=== PATIENT | male | born 1950 | race Hispanic/Latino ===

== ENCOUNTER 2019-08-09 10:44 | Emergency (ER) | payer SELFPAY ==
--- NOTE | 2019-08-09 11:20 | Emergency Department Report ---
Blank Doc - Documentation Documentation: 69-year-old male that presents with chest pain and SOB. This initial assessment/diagnostic orders/clinical plan/treatment(s) is/are subject to change based on patient's health status, clinical progression and re- assessment by fellow clinical providers in the ED. Further treatment and workup at subsequent clinical providers discretion. Patient/guardians urged not to elope from the ED as their condition may be serious if not clinically assessed and managed. Initial orders include: 1- Patient sent to MAIN for further evaluation and treatment 2- EKG 3- labs 4- CXR 5- O2 oxygen
--- NOTE | 2019-08-09 11:30 | XRay Report ---
CHEST 2 VIEWS INDICATION: SOB. COMPARISON: None available. FINDINGS: Support devices: None. Median sternotomy wires and mediastinal surgical clips. Heart: Within normal limits. Pulmonary vasculature: Mild central vascular prominence. Lungs/pleura: Mild patchy and streaky right lower lobe opacities with blunting of the right costophre yamil angle. Similar blunting of the left costophrenic angle and blunting of both posterior costophreni c angles. No pneumothorax. Additional findings: None. IMPRESSION: 1. Small pleural effusions versus scarring. 2. Possible early right lower lobe pneumonia. 3. No CHF. Signer Name: Skip Lau MD Signed: 08/09/2019 11:25 AM Workstation Name: [id number]
[2019-08-09 11:58] LABS: Basophils % (Auto) 0.7 % (0.0-1.8); Eosinophils # (Auto) 0.3 K/mm3 (0.0-0.4); Eosinophils % (Auto) 4.1 % (0.0-4.3); Hematocrit 36.2 % (35.5-45.6); Hemoglobin 11.9 gm/dl (11.8-15.2); Lymphocytes # (Auto) 2.6 K/mm3 (1.2-5.4); Lymphocytes % (Auto) 36.5 % (13.4-35.0); Mean Corpuscular HGB Conc 33 % (32-34); Mean Corpuscular Volume 93 fl (84-94); Monocytes # (Auto) 0.6 K/mm3 (0.0-0.8); Monocytes % (Auto) 7.9 % (0.0-7.3); Platelet Count 203 K/mm3 (140-440); Red Blood Count 3.87 M/mm3 (3.65-5.03); Red Cell Distribution Width 15.8 % (13.2-15.2)
[2019-08-09 12:09] LABS: INR 0.99 (0.87-1.13)
[2019-08-09 12:11] LABS: Partial Thromboplastin Time 34.9 Sec. (24.2-36.6)
[2019-08-09 12:25] LABS: Albumin 2.9 g/dL (3.9-5); Calcium 8.5 mg/dL (8.4-10.2)
[2019-08-09] MEDS ORDERED: IPRATROPIUM/ALBUTEROL SULFATE 3 ML AMPUL.NEB IH ONE ×2 (13:06)
--- NOTE | 2019-08-09 13:35 | Emergency Department Report ---
HPI - HPI HPI: Room 25 The patient is a 69-year-old male presenting with chief complaint of shortness of breath. States she's felt short of breath for several weeks shortness of breath increased this morning. Patient missed chest congestion. Patient is to rhinorrhea for 2 weeks. Patient states she's had a cough has been productive of green sputum. Area began this morning. Patient denies recent antibiotics. Patient denies history of fever Location: [See above] Duration: [See above] Quality: [See above] Severity: [See above] Timing: [See above] Context: [See above] Modifying factors: [See above] Associated signs and symptoms: [see above] <CARMINE GARCIA - Last Filed: 08/09/19 13:29> <JOSE G HATCH - Last Filed: 08/09/19 22:36> - General Chief Complaint: Dyspnea/Respdistress Time Seen by Provider: 08/09/19 11:19 ED Past Medical Hx - Past Medical History Previous Medical History?: Yes Hx Hypertension: Yes Hx Congestive Heart Failure: Yes Hx Diabetes: Yes - Surgical History Past Surgical History?: Yes Hx Open Heart Surgery: Yes - Family History Family history: no significant - Social History Smoking Status: Current Every Day Smoker (1/2 pack per day) Substance Use Type: None (denies illicit drug use), Alcohol (occasional) <CARMINE GARCIA - Last Filed: 08/09/19 13:29> <JOSE G HATCH - Last Filed: 08/09/19 22:36> - Medications Home Medications: Home Medications Medication Instructions Recorded Confirmed Last Taken Type Albuterol INH(or & Nicu Only) 2 puff IH QID PRN #8.5 gram 08/09/19 Unknown Rx [ProAir HFA Inhaler] Benzonatate [Tessalon Perles] 100 mg PO Q8HR #30 capsule 08/09/19 Unknown Rx Diphenoxylate/Atropine [Lomotil] 1 - 2 tab PO QID PRN #20 tablet 08/09/19 Unknown Rx levoFLOXacin [Levaquin TAB] 500 mg PO QDAY #10 tablet 08/09/19 Unknown Rx ED Review of Systems ROS: Stated complaint: SOB Other details as noted in HPI Constitutional: denies: fever Eyes: denies: eye pain ENT: congestion Respiratory: cough, shortness of breath Cardiovascular: denies: chest pain Endocrine: no symptoms reported Gastrointestinal: denies: abdominal pain Genitourinary: denies: dysuria Musculoskeletal: denies: back pain Neurological: denies: headache <PALizabethCARMINE Kj - Last Filed: 08/09/19 13:29> ROS: Stated complaint: SOB Other details as noted in HPI <JOSE G HATCH - Last Filed: 08/09/19 22:36> Physical Exam - Physical Exam Vital Signs: Vital Signs 08/09/19 08/09/19 08/09/19 10:58 13:12 13:15 Temperature 97.8 F Pulse Rate 53 L Pulse Rate [ 86 Anterior Bilateral Throughout] Respiratory 16 Rate Respiratory 18 Rate [Anterior Bilateral Throughout] Blood Pressure 100/58 O2 Sat by Pulse 91 97 Oximetry Physical Exam: GENERAL: The patient is well-developed well-nourished male sitting on stretcher not appearing to be in acute distress. [] HEENT: Normocephalic. Atraumatic. Extraocular motions are intact. Patient has moist mucous membranes. NECK: Supple. Trachea midline CHEST/LUNGS: Clear to auscultation. There is no respiratory distress noted. HEART/CARDIOVASCULAR: Regular. There is no tachycardia. There is no gallop rub or murmur. ABDOMEN: Abdomen is soft, nontender. Patient has normal bowel sounds. There is no abdominal distention. SKIN: There is no rash. There is no edema. There is no diaphoresis. NEURO: The patient is awake, alert, and oriented. The patient is cooperative. The patient has normal speech MUSCULOSKELETAL:There is no evidence of acute injury. <CARMINE GARCIA Kj - Last Filed: 08/09/19 13:29> - Physical Exam Vital Signs: Vital Signs 08/09/19 08/09/19 08/09/19 10:58 13:12 13:15 Temperature 97.8 F Pulse Rate 53 L Pulse Rate [ 86 Anterior Bilateral Throughout] Respiratory 16 Rate Respiratory 18 Rate [Anterior Bilateral Throughout] Blood Pressure 100/58 Blood Pressure [Left] O2 Sat by Pulse 91 97 Oximetry 08/09/19 17:21 Temperature 98.2 F Pulse Rate 70 Pulse Rate [ Anterior Bilateral Throughout] Respiratory 19 Rate Respiratory Rate [Anterior Bilateral Throughout] Blood Pressure Blood Pressure 135/88 [Left] O2 Sat by Pulse 97 Oximetry <JOSE G HATCH - Last Filed: 08/09/19 22:36> ED Course Vital Signs 08/09/19 08/09/19 08/09/19 10:58 13:12 13:15 Temperature 97.8 F Pulse Rate 53 L Pulse Rate [ 86 Anterior Bilateral Throughout] Respiratory 16 Rate Respiratory 18 Rate [Anterior Bilateral Throughout] Blood Pressure 100/58 O2 Sat by Pulse 91 97 Oximetry <PALizabethCARMINE K - Last Filed: 08/09/19 13:29> Vital Signs 08/09/19 08/09/19 08/09/19 10:58 13:12 13:15 Temperature 97.8 F Pulse Rate 53 L Pulse Rate [ 86 Anterior Bilateral Throughout] Respiratory 16 Rate Respiratory 18 Rate [Anterior Bilateral Throughout] Blood Pressure 100/58 Blood Pressure [Left] O2 Sat by Pulse 91 97 Oximetry 08/09/19 17:21 Temperature 98.2 F Pulse Rate 70 Pulse Rate [ Anterior Bilateral Throughout] Respiratory 19 Rate Respiratory Rate [Anterior Bilateral Throughout] Blood Pressure Blood Pressure 135/88 [Left] O2 Sat by Pulse 97 Oximetry <JOSE G HATCH - Last Filed: 08/09/19 22:36> ED Medical Decision Making - Lab Data Result diagrams: 08/09/19 11:44 08/09/19 11:44 - EKG Data -: EKG Interpreted by Me EKG shows normal: sinus rhythm Rate: normal - EKG Data When compared to previous EKG there are: previous EKG unavailable Interpretation: nonspecific ST-T wave michelet (T-wave inversion in leads 1, aVL, V6) - Radiology Data Radiology results: report reviewed (chest x-ray), image reviewed (chest x-ray) interpreted by me: Chest x-ray-no focal infiltrates, no pneumothorax [facility] [address] [place] [address] XRay Report Signed Patient: JESSICA GARCÍA MR#: [id number] : 1950 Acct:[id number] Age/Sex: 69 / M ADM Date: 08/09/19 Loc: ED Attending Dr: Ordering Physician: ED MD RENA Date of Service: 08/09/19 Procedure(s): XR chest routine 2V Accession Number(s): [id number] cc: ED MD RENA Fluoro Time In Minutes: CHEST 2 VIEWS INDICATION: SOB. COMPARISON: None available. FINDINGS: Support devices: None. Median sternotomy wires and mediastinal surgical clips. Heart: Within normal limits. Pulmonary vasculature: Mild central vascular prominence. Lungs/pleura: Mild patchy and streaky right lower lobe opacities with blunting of the right costophrenic angle. Similar blunting of the left costophrenic angle and blunting of both posterior costophrenic angles. No pneumothorax. Additional findings: None. IMPRESSION: 1. Small pleural effusions versus scarring. 2. Possible early right lower lobe pneumonia. 3. No CHF. Signer Name: Sly Hunt MD Signed: 08/09/2019 11:25 AM Workstation Name: [id number] Transcribed By: REF Dictated By: SLY HUNT MD Electronically Authenticated By: SLY HUNT MD Signed Date/Time: 08/09/191124 DD/ 1122 TD/TT: - Differential Diagnosis pneumonia, bronchitis, new onset COPD <CARMINE GARCIA - Last Filed: 08/09/19 13:29> - Lab Data Result diagrams: 08/09/19 11:44 08/09/19 11:44 Laboratory Results - last 24 hr 08/09/19 08/09/19 08/09/19 11:44 11:44 11:44 WBC 7.2 RBC 3.87 Hgb 11.9 Hct 36.2 MCV 93 MCH 31 MCHC 33 RDW 15.8 H Plt Count 203 Lymph % (Auto) 36.5 H Hays % (Auto) 7.9 H Eos % (Auto) 4.1 Baso % (Auto) 0.7 Lymph # 2.6 Hays # 0.6 Eos # 0.3 Baso # 0.0 Seg Neutrophils % 50.8 Seg Neutrophils # 3.6 PT 13.2 INR 0.99 APTT 34.9 Sodium 140 Potassium 5.0 Chloride 107.6 H Carbon Dioxide 19 L Anion Gap 18 BUN 26 H Creatinine 3.3 H Estimated GFR 19 BUN/Creatinine Ratio 8 Glucose 119 H Calcium 8.5 Total Bilirubin 0.30 AST 32 ALT 17 Alkaline Phosphatase 78 Troponin T 0.034 H Total Protein 6.7 Albumin 2.9 L Albumin/Globulin Ratio 0.8 Triglycerides 150 H Cholesterol 146 LDL Cholesterol Direct 94 HDL Cholesterol 34 L Cholesterol/HDL Ratio 4.29 01/15/20 14:56 WBC RBC Hgb Hct MCV MCH MCHC RDW Plt Count Lymph % (Auto) Hays % (Auto) Eos % (Auto) Baso % (Auto) Lymph # Hays # Eos # Baso # Seg Neutrophils % Seg Neutrophils # PT INR APTT Sodium Potassium Chloride Carbon Dioxide Anion Gap BUN Creatinine Estimated GFR BUN/Creatinine Ratio Glucose Calcium Total Bilirubin AST ALT Alkaline Phosphatase Troponin T 0.023 Total Protein Albumin Albumin/Globulin Ratio Triglycerides Cholesterol LDL Cholesterol Direct HDL Cholesterol Cholesterol/HDL Ratio <JOSE G HATCH - Last Filed: 08/09/19 22:36> Critical care attestation.: If time is entered above; I have spent that time in minutes in the direct care of this critically ill patient, excluding procedure time. <CARMINE GARCIA - Last Filed: 08/09/19 13:29> Critical care attestation.: If time is entered above; I have spent that time in minutes in the direct care of this critically ill patient, excluding procedure time. <JOSE G HATCH - Last Filed: 08/09/19 22:36> ED Disposition Does the pt Need Aspirin: No <CARMINE GARCIA - Last Filed: 08/09/19 13:29> Is pt being admited?: No Does the pt Need Aspirin: No <JOSE G HATCH - Last Filed: 08/09/19 22:36> Clinical Impression: Pneumonia, Shortness of breath Disposition: - TO HOME OR SELFCARE Condition: Stable Instructions: Bacterial Pneumonia (ED) Additional Instructions: Return to the emergency department should you develop worsening symptoms, inability to tolerate food or liquids, high fever or any other concerns Prescriptions: levoFLOXacin [Levaquin TAB] 500 mg PO QDAY #10 tablet Diphenoxylate/Atropine [Lomotil] 1 - 2 tab PO QID PRN #20 tablet PRN Reason: Diarrhea Albuterol INH(or & Nicu Only) [ProAir HFA Inhaler] 2 puff IH QID PRN #8.5 gram PRN Reason: Shortness Of Breath Benzonatate [Tessalon Perles] 100 mg PO Q8HR #30 capsule Referrals: MANISHA SIMPSON MD [Primary Care Provider] - 3-5 Days UMESH BOO MD [Staff Physician] - 3-5 Days
[2019-08-09 15:49] LABS: Chol/HDL Ratio 4.29 %
[2019-08-09 17:22] VITALS: BP 135/88
== END 2019-08-09 17:50 | disposition home or self-care (01) ==
LOC: ED 10:44
DX: J18.9 Pneumonia, unspecified organism (principal); I11.0 Hypertensive heart disease with heart failure; I50.9 Heart failure, unspecified; E11.9 Type 2 diabetes mellitus without complications
CPT/HCPCS: 36415; 71046; 80053; 80061; 84484; 85025; 85610; 85730; 93005; 93010; 94640; 94644; 99284

== ENCOUNTER 2019-11-12 07:25 | Emergency (ER) | payer SELFPAY ==
[2019-11-12 07:50] VITALS: BP 168/91
--- NOTE | 2019-11-12 11:01 | Emergency Department Report ---
ED General Adult HPI - General Chief complaint: Pain General Stated complaint: FOOT PAIN Time Seen by Provider: 11/12/19 10:08 Source: patient Mode of arrival: Wheelchair Limitations: No Limitations - History of Present Illness Initial comments: This is a 69-year-old male who presents to the emergency room with bilateral foot pain. Past medical history of hypertension, congestive heart failure, chronic kidney disease. Patient states he arrived to [facility] from [place] on Wednesday and placed at a [facility] and [place]. States he was kicked out of the [facility] and has no place to go home. Reports worsening bilateral foot pain from excessive walking daily. He is requesting assistance for sheltering. He denies recent injury, swelling redness, numbness or tingling. Onset/Timin -: days(s) Location: lower extremity (bilateral foot pain) Radiation: non-radiation Severity scale (0 -10): 10 Quality: aching Consistency: intermittent Improves with: none Worsens with: movement Associated Symptoms: denies other symptoms Treatments Prior to Arrival: none - Related Data Previous Rx's Medication Instructions Recorded Last Taken Type Albuterol INH(or & Nicu Only) 2 puff IH QID PRN #8.5 gram 08/09/19 Unknown Rx [ProAir HFA Inhaler] Benzonatate [Tessalon Perles] 100 mg PO Q8HR #30 capsule 08/09/19 Unknown Rx Diphenoxylate/Atropine [Lomotil] 1 - 2 tab PO QID PRN #20 tablet 08/09/19 Unknow n Rx levoFLOXacin [Levaquin TAB] 500 mg PO QDAY #10 tablet 08/09/19 Unknown Rx Allergies Allergy/AdvReac Type Severity Reaction Status Date / Time No Known Allergies Allergy Unverified 08/09/19 10:59 ED Review of Systems ROS: Stated complaint: FOOT PAIN Other details as noted in HPI Constitutional: denies: chills, fever Respiratory: denies: cough, shortness of breath, wheezing Cardiovascular: denies: chest pain, palpitations Gastrointestinal: denies: abdominal pain, nausea, diarrhea Musculoskeletal: arthralgia (bilateral feet). denies: back pain, joint swelling Skin: denies: rash, lesions Neurological: denies: headache, weakness, paresthesias Psychiatric: denies: anxiety, depression ED Past Medical Hx - Past Medical History Previous Medical History?: Yes Hx Hypertension: Yes Hx Congestive Heart Failure: Yes Hx Diabetes: Yes - Surgical History Hx Open Heart Surgery: Yes - Social History Smoking Status: Current Every Day Smoker Substance Use Type: Cocaine - Medications Home Medications: Home Medications Medication Instructions Recorded Confirmed Last Taken Type Albuterol INH(or & Nicu Only) 2 puff IH QID PRN #8.5 gram 08/09/19 Unknown Rx [ProAir HFA Inhaler] Benzonatate [Tessalon Perles] 100 mg PO Q8HR #30 capsule 08/09/19 Unknown Rx Diphenoxylate/Atropine [Lomotil] 1 - 2 tab PO QID PRN #20 tablet 08/09/19 Unknown Rx levoFLOXacin [Levaquin TAB] 500 mg PO QDAY #10 tablet 08/09/19 Unknown Rx ED Physical Exam - General Limitations: No Limitations General appearance: alert, in no apparent distress - Respiratory Respiratory exam: Present: normal lung sounds bilaterally. Absent: respiratory distress - Cardiovascular Cardiovascular Exam: Present: regular rate, normal rhythm. Absent: systolic murmur, diastolic murmur, rubs, gallop - GI/Abdominal GI/Abdominal exam: Present: soft, normal bowel sounds. Absent: distended, tenderness, guarding, rebound, rigid - Extremities Exam Extremities exam: Present: normal inspection, full ROM, normal capillary refill. Absent: pedal edema, joint swelling, calf tenderness - Neurological Exam Neurological exam: Present: alert, oriented X3, normal gait - Psychiatric Psychiatric exam: Present: normal affect, normal mood - Skin Skin exam: Present: warm, dry, intact, normal color. Absent: rash ED Course Vital Signs 11/12/19 07:44 Temperature 97.8 F Pulse Rate 87 Respiratory 20 Rate Blood Pressure 168/91 O2 Sat by Pulse 99 Oximetry ED Medical Decision Making - Medical Decision Making This is a 69-year-old male who presents to the emergency room with bilateral foot pain and requesting assistance for housing. Vitals are stable and patient in no acute distress. Normal lower extremity exam. Consulted healthcare social worker. tube worker spoke with patient and story changed stating he was at [place] when he initially told me he arrived from [place] on Wednesday. Patient receives Social Security monthly and admits to cocaine abuse. Refused treatment options. Patient given transportation card with hand out for outpatient therapy. He was discharged home stable with strict return instructions. Critical care attestation.: If time is entered above; I have spent that time in minutes in the direct care of this critically ill patient, excluding procedure time. ED Disposition Clinical Impression: Foot pain, bilateral, Homelessness Disposition: TO HOME OR SELFCARE Is pt being admited?: No Condition: Stable Instructions: Arthralgia (ED) Referrals: [facility] [Outside] - 3-5 Days [facility] [Outside] - 3-5 Days [facility] [Provider Group] - 3-5 Days Time of Disposition: 11:39
== END 2019-11-12 11:42 | disposition home or self-care (01) ==
LOC: ED 07:25
DX: M79.672 Pain in left foot (principal); M79.671 Pain in right foot; I11.0 Hypertensive heart disease with heart failure; I50.9 Heart failure, unspecified; E11.9 Type 2 diabetes mellitus without complications; F17.200 Nicotine dependence, unspecified, uncomplicated; F14.10 Cocaine abuse, uncomplicated; Z59.0 Homelessness; Z79.899 Other long term (current) drug therapy
CPT/HCPCS: 99282

== ENCOUNTER 2020-11-15 14:53 | Emergency (ER) | payer MEDICARE ==
[2020-11-15] MEDS ORDERED: SODIUM CHLORIDE 0.9% 500 ML 500 ML IV ONE (16:04)
[2020-11-15 16:21] LABS: Hematocrit 32.4 % (35.5-45.6); Hemoglobin 10.6 gm/dl (11.8-15.2); Mean Corpuscular HGB Conc 33 % (32-34); Mean Corpuscular Volume 94 fl (84-94); Platelet Count 192 K/mm3 (140-440); Red Blood Count 3.43 M/mm3 (3.65-5.03); Red Cell Distribution Width 15.7 % (13.2-15.2)
[2020-11-15 16:33] LABS: INR 0.94 (0.87-1.13)
[2020-11-15 16:38] LABS: Albumin 3.1 g/dL (3.9-5); Calcium 8.2 mg/dL (8.4-10.2)
--- NOTE | 2020-11-15 17:05 | XRay Report ---
CHEST 1 VIEW INDICATION / CLINICAL INFORMATION: possible Sepsis. COMPARISON: Were 721 FINDINGS: SUPPORT DEVICES: Right central venous line HEART / MEDIASTINUM: No significant abnormality. LUNGS / PLEURA: No significant pulmonary or pleural abnormality. No pneumothorax. ADDITIONAL FINDINGS: No significant additional findings. IMPRESSION: No acute disease or interval change from 10/30/2020 Signer Name: Jack Linder MD FACR Signed: 11/15/2020 5:00 PM Workstation Name: [id number]
[2020-11-15 18:42] VITALS: BP 109/50
[2020-11-15 19:03] LABS: RBC Morphology Normal; Total Cells Counted 100
== END 2020-11-15 22:12 | disposition left against medical advice (07) ==
LOC: ED 14:53
DX: R06.02 Shortness of breath (principal); Z53.21 Procedure and treatment not carried out due to patient leaving prior to being seen by health care provider
CPT/HCPCS: 36415; 71045; 80053; 82140; 82805; 85007; 85025; 85610; 87040

== ENCOUNTER 2020-11-19 15:19 | Emergency (ER) | payer MEDICARE ==
--- NOTE | 2020-11-19 16:37 | Emergency Department Report ---
ED General Adult HPI - General Chief complaint: Extremity Problem,Nontraumatic Stated complaint: DIALYSIS PORT Time Seen by Provider: 11/19/20 16:32 Source: patient, EMS Mode of arrival: Wheelchair Limitations: No Limitations - History of Present Illness Initial comments: 70-year-old male patient with history of end-stage renal disease (on dialysis) presents to the emergency department with complaints of dialysis catheter malfunction. Patient states that the catheter became dislodged by accident earlier today. Patient has the catheter with him in his jeans pocket. 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 States he resides at a local [facility] home and goes to dialysis at the local [facility]. No further complaints. - Related Data Home Medications Medication Instructions Recorded Confirmed Last Taken Tamsulosin [Flomax] 0.4 mg PO QDAY 05/19/20 10/31/20 Unknown Calcium Acetate 667 mg PO DAILY 10/31/20 10/31/20 Unknown Hydralazine HCl 50 mg PO TID 10/31/20 10/31/20 Unknown Loperamide HCl [Anti-Diarrheal] 2 mg PO DAILY 10/31/20 10/31/20 Unknown Melatonin [Melatonin 3MG TAB] 3 mg PO HS 10/31/20 10/31/20 Unknown busPIRone [Buspar] 5 mg PO BID 10/31/20 10/31/20 Unknown Albuterol Sulfate [Proventil Hfa] 6.7 gm IH PRN 11/01/20 11/01/20 Unknown Previous Rx's Medication Instructions Recorded Last Taken Type Benzonatate [Tessalon Perles] 100 mg PO Q8HR #30 capsule 08/09/19 Unknown Rx Gabapentin 200 mg PO TID capsule 06/04/20 Unknown Rx Sertraline [Zoloft] 50 mg PO QDAY tablet 06/04/20 Unknown Rx ALPRAZolam [Xanax TAB] 0.25 mg PO Q8H PRN tablet 07/30/20 Unknown Rx Aspirin [Aspirin BABY CHEW TAB] 81 mg PO QDAY tab.chew 07/30/20 Unknown Rx AtorvaSTATin [Lipitor] 40 mg PO QHS tablet 07/30/20 Unknown Rx Lispro Insulin [HumaLOG] 5 unit SUB-Q ACHS units 11/06/20 Unknown Rx Allergies Allergy/AdvReac Type Severity Reaction Status Date / Time No Known Allergies Allergy Verified 11/19/20 15:28 ED Review of Systems ROS: Stated complaint: DIALYSIS PORT Other details as noted in HPI Other: GENERAL: Negative for fever, chills, weight change, anorexia, fatigue. ENT: Negative for ear pain, difficulty hearing, sore throat, nasal congestion, epistaxis. CARDIOVASCULAR: Negative for chest pain, palpitations, lower extremity swelling. PULMONARY: Negative for cough, dyspnea, wheezing, orthopnea, cyanosis. GASTROINTESTINAL: Negative for abdominal pain, nausea, vomiting, diarrhea, constipation. MUSCULOSKELETAL: Negative for joint pain, joint swelling, myalgias, back pain, neck pain. NEUROLOGICAL: Negative for headache, seizure, syncope, paresthesias, weakness. INTEGUMENTARY: Positive for dialysis catheter malfunction. HEMATOLOGICAL: Negative for hemoptysis, hematemesis, hematochezia, hematuria. PSYCHIATRIC: Negative for hallucinations, suicidal ideation, homicidal ideation, anxiety, depression. ED Past Medical Hx - Past Medical History Hx Hypertension: Yes Hx Heart Attack/AMI: Yes Hx Congestive Heart Failure: Yes Hx Diabetes: Yes Hx Deep Vein Thrombosis: Yes Hx Renal Disease: Yes (End-stage renal disease (MWF)) Hx Psychiatric Treatment: Yes (Depression, anxiety) Hx COPD: Yes Additional medical history: ESRD, HEMODIALYSIS, BPH - Surgical History Hx Open Heart Surgery: Yes (CABG) - Social History Smoking Status: Never Smoker Substance Use Type: None - Medications Home Medications: Home Medications Medication Instructions Recorded Confirmed Last Taken Type Benzonatate [Tessalon Perles] 100 mg PO Q8HR #30 capsule 08/09/19 10/31/20 Unknown Rx Tamsulosin [Flomax] 0.4 mg PO QDAY 05/19/20 10/31/20 Unknown History Gabapentin 200 mg PO TID capsule 06/04/20 10/31/20 Unknown Rx Sertraline [Zoloft] 50 mg PO QDAY tablet 06/04/20 10/31/20 Unknown Rx ALPRAZolam [Xanax TAB] 0.25 mg PO Q8H PRN tablet 07/30/20 10/31/20 Unknown Rx Aspirin [Aspirin BABY CHEW TAB] 81 mg PO QDAY tab.chew 07/30/20 10/31/20 Unknown Rx AtorvaSTATin [Lipitor] 40 mg PO QHS tablet 07/30/20 10/31/20 Unknown Rx Calcium Acetate 667 mg PO DAILY 10/31/20 10/31/20 Unknown History Hydralazine HCl 50 mg PO TID 10/31/20 10/31/20 Unknown History Loperamide HCl [Anti-Diarrheal] 2 mg PO DAILY 10/31/20 10/31/20 Unknown History Melatonin [Melatonin 3MG TAB] 3 mg PO HS 10/31/20 10/31/20 Unknown History busPIRone [Buspar] 5 mg PO BID 10/31/20 10/31/20 Unknown History Albuterol Sulfate [Proventil Hfa] 6.7 gm IH PRN 11/01/20 11/01/20 Unknown History Lispro Insulin [HumaLOG] 5 unit SUB-Q ACHS units 11/06/20 Unknown Rx ED Physical Exam - General Limitations: No Limitations - Other Other exam information: General: Awake, appropriately interactive, no acute distress. Neck: Supple. Full range of motion intact. Cardiovascular: Normal peripheral perfusion. Pulmonary: No respiratory distress. Patient is speaking normally without use of accessory muscles. Skin: No apparent rashes or lesions. Hemodialysis port to right chest wall with displaced catheter. Neurological: No facial asymmetry. Speech is clear. Follows commands. Patient is alert and oriented. Musculoskeletal: Moves all four extremities spontaneously with normal range of motion. Psych: Cooperative. Appropriate mood and affect. ED Course Vital Signs 11/19/20 17:59 Pulse Rate 69 Respiratory 20 Rate Blood Pressure 149/60 [Right] O2 Sat by Pulse 97 Oximetry ED Medical Decision Making - Lab Data Result diagrams: 11/19/20 16:48 11/19/20 16:48 - Medical Decision Making Patient presents to the emergency department with complaints of hemodialysis catheter malfunction. States his catheter accidentally became dislodged earlier today. He attended dialysis yesterday as scheduled and will be returning for his next dialysis appointment tomorrow. Patient has no other complaints. Case discussed with Dr. Cornell, vascular surgery, who is unavailable to replace the dialysis catheter today but agreed to see patient in his office tomorrow morning. Patient has been instructed to call his office at 8:00 AM and have the catheter replaced before he goes to dialysis. Patient expressed understanding and is agreeable to plan of care. Strict return precautions provided. Critical care attestation.: If time is entered above; I have spent that time in minutes in the direct care of this critically ill patient, excluding procedure time. ED Disposition Clinical Impression: Complications, mechanical, catheter, dialysis Qualifiers: Encounter type: initial encounter Qualified Code(s): T82.49XA - Other complication of vascular dialysis catheter, initial encounter Disposition: TO HOME OR SELFCARE Is pt being admited?: No Does the pt Need Aspirin: No Condition: Stable Instructions: Dialysis Vascular Access Malfunction Additional Instructions: Call Dr. Cronell, [facility], tomorrow at 8:00 AM, before your scheduled dialysis session, for dialysis catheter replacement. Return to the emergency department immediately for new or worsening symptoms. Referrals: RENATA CORNELL MD [Staff Physician] - 3-5 Days [facility] [Provider Group] - 3-5 Days Time of Disposition: 17:20
[2020-11-19 17:05] LABS: Basophils # (Auto) 0.1 K/mm3 (0.0-0.1); Basophils % (Auto) 1.1 % (0.0-1.8); Eosinophils # (Auto) 0.5 K/mm3 (0.0-0.4); Eosinophils % (Auto) 8.9 % (0.0-4.3); Hematocrit 31.7 % (35.5-45.6); Hemoglobin 10.5 gm/dl (11.8-15.2); Lymphocytes # (Auto) 1.5 K/mm3 (1.2-5.4); Lymphocytes % (Auto) 27.1 % (13.4-35.0); Mean Corpuscular HGB Conc 33 % (32-34); Mean Corpuscular Volume 95 fl (84-94); Monocytes # (Auto) 0.8 K/mm3 (0.0-0.8); Monocytes % (Auto) 13.9 % (0.0-7.3); Platelet Count 188 K/mm3 (140-440); Red Blood Count 3.35 M/mm3 (3.65-5.03); Red Cell Distribution Width 15.7 % (13.2-15.2)
[2020-11-19 17:24] LABS: Calcium 8.3 mg/dL (8.4-10.2)
[2020-11-19 18:00] VITALS: BP 149/60
== END 2020-11-19 18:00 | disposition home or self-care (01) ==
LOC: ED 15:19
DX: T82.49XA Other complication of vascular dialysis catheter, initial encounter (principal); I13.2 Hypertensive heart and chronic kidney disease with heart failure and with stage 5 chronic kidney disease, or end stage renal disease; N18.6 End stage renal disease; I50.9 Heart failure, unspecified; E11.22 Type 2 diabetes mellitus with diabetic chronic kidney disease; I25.2 Old myocardial infarction; J44.9 Chronic obstructive pulmonary disease, unspecified; F32.9 Major depressive disorder, single episode, unspecified; F41.9 Anxiety disorder, unspecified; Z98.890 Other specified postprocedural states; Z79.899 Other long term (current) drug therapy; Y92.89 Other specified places as the place of occurrence of the external cause
CPT/HCPCS: 36415; 80048; 85025